=== PATIENT | female | born 1930 | race Caucasian/White ===

== ENCOUNTER 2017-11-24 21:07 | Inpatient (IN) | payer MEDICARE, MEDICAID ==
[~2017-11-24] VITALS: Ht 149.9 cm; Wt 40.4 kg
[2017-11-24 21:54] VITALS: BP 131/67
--- NOTE | 2017-11-24 22:08 | NUR ---
PT TAKEN TO BED 12
--- NOTE | 2017-11-24 22:10 | NUR ---
87/F CAME IN WITH FAMILY WITH C/O N/V/D WITH DECREASED APPETITE, COUGH/WHEEZING AND INTERMITTENT FEVERS X 4 DAYS. FAMILY REPORTS PT HAS HX OF EMPHYSEMA WITH COLLAPSED LUNG. ALL LUNG SOUNDS CLEAR BUT DIMINISHED THROUGHOUT, ABSENT ON LLL, PER DAUGHTER COLLAPSED LEFT LUNG. ABLE TO SPEAK AT FULL LENGTH WITHOUT DIFFICULTY, NO ACUTE RESPIRATORY DISTRESS NOTED RX: ALBUTEROL INH
[2017-11-24] MEDS ORDERED: NACL 0.9% 1,000 ML IV ONE (22:30)
[2017-11-24] MEDS ORDERED: ALBUTEROL SULFATE/IPRATROPIU 3 ML SOL IH ONE ×2 (22:30→23:55)
[2017-11-24] MEDS ORDERED: DEXAMETHASONE 10 MG/ML VIAL IVP ONE (22:30)
[2017-11-24 23:17] LABS: BASOPHILS # (AUTO) 0.1 K/uL (0.00-0.22); BASOPHILS % (AUTO) 1.6 % (0.0-2.0); EOSINOPHILS % (AUTO) 0.2 % (0.0-4.0); HEMATOCRIT 36.9 % (36-48); HEMOGLOBIN 12.5 g/dL (12.0-16.0); LYMPHOCYTES # (AUTO) 0.8 K/uL (2.5-16.5); LYMPHOCYTES % (AUTO) 15.5 % (20.5-51.1); MEAN CORPUSCULAR HEMOGLOBIN 31 pg (27-31); MEAN CORPUSCULAR HGB CONC 34 g/dL (33-37); MEAN CORPUSCULAR VOLUME 91 fL (80-94); MONOCYTES # (AUTO) 0.7 K/uL (0.8-1.0); MONOCYTES % (AUTO) 12.2 % (1.7-9.3); NEUTROPHILS # (AUTO) 3.8 K/uL (1.8-7.7); NEUTROPHILS % (AUTO) 70.5 % (42.2-75.2); PLATELET COUNT (AUTO) 236 K/uL (140-450); RED BLOOD CELL COUNT(AUTO) 4.06 MIL/uL (4.20-5.40); RED CELL DISTRIBUTION WIDTH 11.1 % (11.6-13.7); WHITE BLOOD COUNT (AUTO) 5.4 K/uL (4.8-10.8)
[2017-11-24 23:26] LABS: ANION GAP 9.5 (8-16); CARBON DIOXIDE 28.9 mmol/L (21-32); CHLORIDE 100 mmol/L (98-107); CREATININE 0.7 mg/dL (0.6-1.3); GLUCOSE 128 mg/dL (74-106); POTASSIUM 3.4 mmol/L (3.5-5.1); SODIUM SERUM 135 mmol/L (136-145); UREA NITROGEN, BLOOD 8 mg/dL (7-18)
[2017-11-24 23:32] LABS: ALBUMIN 3.2 g/dL (3.4-5.0); ASPARTATE AMINOTRANSFERASE 42 U/L (15-37); TOTAL BILIRUBIN 0.4 mg/dL (0.0-1.0)
[2017-11-25] MEDS ORDERED: ALBUTEROL 0.083% 2.5 MG/3 ML NEBU IH PRN (00:05)
[2017-11-25] MEDS ORDERED: ONDANSETRON 4 MG/2 ML VIAL IVP PRN (00:05)
[2017-11-25] MEDS ORDERED: guaiFENesin 20 MG/ML UDC PO PRN (00:15)
--- NOTE | 2017-11-25 00:20 | NUR ---
Patient will be admitted to [facility]. Admited to MS. Will go to room 121A. Belongings list completed. BEDSIDE Report to ELINA KELLER. IV SL AND PATENT
[2017-11-25 01:00] VITALS: BP 110/69
--- NOTE | 2017-11-25 01:00 | NUR ---
ADMITTED PATIENT TO THE TELE UNIT, PATIENT AWAKE ALERT ORIENTED X2, NO S/S OF DISTRESS NOTED, RESPIRATION EVEN AND UNLABORED, IV ON THE LT HAND, PATENT AND INTACT, FLUSHED WITH 10ML NS. ORIENTED PATIENT TO THE BATHROOM, PLAN OF CARE DISCUSSED, PATIENT VERBALIZED UNDERSTANDING, CALL LIGHT WITHIN REACH, SAFETY MEASURE ENSURED, WILL CONTINUE TO MONITOR.
[2017-11-25 01:17] LABS: APPEARANCE,URINE HAZY (CLEAR); BILIRUBIN,URINE NEGATIVE (NEGATIVE); BLOOD, URINE TRACE-L (NEGATIVE); COLOR,URINE YELLOW (YELLOW); LEUKOCYTE ESTERASE ,URINE TRACE (NEGATIVE); NITRITE, URINE NEGATIVE (NEGATIVE); UGLUCOSE NEGATIVE (NEGATIVE)
[2017-11-25 01:34] LABS: RBC,URINE 0-5 (RARE) /HPF (0-5)
--- NOTE | 2017-11-25 02:10 | NUR ---
DAUGHTER AT BEDSIDE
[2017-11-25] MEDS: IPRATROPIUM 0.02% 0.5 MG/2.5 ML NEBU IH SCH ×3 (02:11→20:16)
[2017-11-25] MEDS: ALBUTEROL 0.083% 2.5 MG/3 ML NEBU IH SCH ×3 (02:11→20:16)
--- NOTE | 2017-11-25 03:08 | NUR ---
PATIENT AWAKE ALERT, RESTING IN BED, DAUGHTER AT THE BEDSIDE. NO S/S OF DISTRESS NOTED, RESPIRATION EVEN AND UNLABORED, CALL LIGHT WITHIN REACH, SAFETY MEASURE ENSURED, WILL CONTINUE TO MONITOR.
[2017-11-25 04:00] VITALS: BP 115/55
[2017-11-25] MEDS ORDERED: methylPREDNISolone SS 40 MG in WATER STERILE 1 ML IV SCH (05:00)
--- NOTE | 2017-11-25 05:04 | NUR ---
CLARIFIED WITH PHARMACIST NAKUL, SOLU-MEDROL IS GIVEN VIA IVP, DUE MEDICATION GIVEN, PATIENT TOLERATED WELL. NO S/S OF DISTRESS NOTED, RESPIRATION EVEN AND UNLABORED, CALL LIGHT WITHIN REACH, SAFETY MEASURE ENSURED, WILL CONTINUE TO MONITOR.
[2017-11-25 08:00] VITALS: BP 114/58
--- NOTE | 2017-11-25 08:00 | NUR ---
RECEIVED REPORT FROM KINGSTON KELLER FOR CONTINUITY OF CARE. PATIENT AWAKE ,A/OX3 FORGETFUL , DAUGHTER AT THE BED SIDE HELPING WITH THE NEEDS. NO S/S OF RESP DISTRESS NOTED .DENIES ANY PAIN. IV SITE RT HAND G 22 INTACT AND PATENT. GENERALIZE WEAKNESS NOTED SAFETY ENFORCED. PLAN OF CARE DISCUSSED WITH THE PATIENT VITALS STABLE WILL CONTINUE TO MONITOR.
--- NOTE | 2017-11-25 09:00 | NUR ---
DUE MEDS GIVEN TOLERATED WELL. DAUGHTER ASSIST PATIENT WITH MORNING CARE ,ATE BREAKFAST GOOD APPETITE.
[2017-11-25] MEDS: ENOXAPARIN 30 MG/0.3 ML SYR SUBQ SCH (09:16)
--- NOTE | 2017-11-25 09:41 | NUR ---
PATIENT HAS BEEN SCREENED AND CATEGORIZED HIGH NUTRITION RISK. PATIENT WILL BE SEEN WITHIN 1-2 DAYS OF ADMISSION. 11/25/17-11/26/[address]
[2017-11-25 12:00] VITALS: BP 138/72
[2017-11-25] MEDS ORDERED: methylPREDNISolone SS 40 MG/ML VIAL IVP SCH (13:30)
--- NOTE | 2017-11-25 15:32 | NUR ---
11/25/17 RD INITIAL ASSESSMENT COMPLETED PLEASE REFER TO NUTRITION ASSESSMENT UNDER CARE ACTIVITY FOR ESTIMATED NUTRITIONAL NEEDS. RD RECOMMENDATIONS: 1. RECOMMEND DOWNGRADING PTS DIET TO MECHANICAL SOFT DIET D/T PT WITH POOR DENTITION. -NOTE PT CONSUMED ~75% OF BREAKFAST THIS MORNING PER PTS PO INTAKE SHEET. 2. IF PT HAS POOR PO INTAKE, CONSIDER ADDING BOOST PLUS WITH MEALS FOR ADDITIONAL KCAL AND PROTEIN (EACH BOOST PLUS PROVIDES 360 KCAL AND 14 GM OF PROTEIN). 3. RD WILL F/U 3-5 DAYS; MODERATE RISK. RYDER URBAN, RD
[2017-11-25 16:00] VITALS: BP 119/58
[2017-11-25] MEDS ORDERED: AZITHROMYCIN 250 MG in DEXTROSE 5% 250 ML IV SCH (16:00)
--- NOTE | 2017-11-25 19:15 | NUR ---
RECEIVED HANDOFF REPORT FROM CHARGE NURSE NEHA. PATIENT A&OX2. PATIENT IS FORGETFUL REORIENTATION AND REINFORCEMENT NEEDED. PATIENT IV PATENT AND INTACT. O2 NASAL CANNULA AT BEDSIDE. PATIENT HAS SLIGHT INTERMITTENT COUGH. PATIENT DENIES PAIN. PATIENT STATES WANTING TO GO HOME. NO SIGNS OR SYMPTOMS OF ACUTE DISTRESS NOTED. VITAL SIGNS STABLE. SAFETY MEASURES ENSURED. BED ALARM ON. YELLOW GOWN INTACT. TELE BOX REMOVED. YELLOW NON SLIP SOCKS IN PLACE. FALL PROTOCOL IN PLACE. PATIENT IS ON BEDREST. WILL PROVIDE FREQUENT TOILETING. PATIENT NEXT TO NURSES STATION FOR CLOSER MONITORING. FAMILY AT BEDSIDE. WILL CONTINUE TO MONITOR.
[2017-11-25] MEDS: methylPREDNISolone SS 40 MG/ML VIAL IVP SCH (20:15)
--- NOTE | 2017-11-25 20:16 | NUR ---
SON IN ROOM
--- NOTE | 2017-11-25 20:20 | NUR ---
PM MEDS GIVEN WITH EDUCATION. REINFORCEMENT NECESSARY. PATIENT VERBALIZED UNDERSTANDING. RT IN TO SEE PATIENT. PATIENT LINENS HAVE BEEN CHANGED. TOILETING OFFERED. NO SIGNS OR SYMPTOMS OF ACUTE DISTRESS NOTED. CALL LIGHT WITHIN REACH. SAFETY MEASURES ENSURED. WILL CONTINUE TO MONITOR.
--- NOTE | 2017-11-25 20:45 | NUR ---
PATIENTS SON SHOWED CONCERN FOR NASAL CANNULA BEING OUT OF PLACE. NASAL CANNULA RE-PLACED PROPERLY ON 2L. PATIENT O2 IS 95% ON NASAL CANNULA. 94% ON ROOM AIR. PATIENT NOT IN DISTRESS. EDUCATION PROVIDED REGARDING COPD AND OXYGEN LEVELS. PATIENT AND FAMILY VERBALIZED UNDERSTANDING. REINFORCEMENT NEEDED FOR PATIENT. SAFETY MEASURES ENSURED. CALL LIGHT WITHIN REACH. WILL CONTINUE TO MONITOR.
--- NOTE | 2017-11-25 21:30 | NUR ---
PATIENTS SON REQUESTED COFFEE FOR PATIENT. DECAF OFFERED SO PATIENT CAN GET REST FOR THE NIGHT. SON VERBALIZED UNDERSTANDING. PATIENT NOT IN DISTRESS. SAFETY MEASURES ENSURED. CALL LIGHT WITHIN REACH. WILL CONTINUE TO MONITOR.
--- NOTE | 2017-11-25 22:52 | NUR ---
GRAIN ROASTER PROVIDED LINEN CHANGES AND TOILETING TO PATIENT. PATIENT TOLERATED WELL. PATIENT NOT IN DISTRESS. SAFETY MEASURES ENSURED. CALL LIGHT WITHIN REACH. WILL CONTINUE TO MONITOR.
--- NOTE | 2017-11-25 23:30 | NUR ---
SENIOR SUSTAINABILITY ADVISOR IN TO PROVIDE TOILETING TO PATIENT. PATIENT DENIES USAGE. LINENS DRY. PATIENT NOT IN DISTRESS. WILL CONTINUE TO MONITOR.
[2017-11-26] VITALS: BP 136/57
--- NOTE | 2017-11-26 00:30 | NUR ---
PATIENT RESTING IN BED. PATIENT DENIES PAIN. NO SIGNS OR SYMPTOMS OF ACUTE DISTRESS NOTED. NASAL CANNULA OFF, PUT BACK IN PLACE. O2 IS AT 2L. SAFETY MEASURES ENSURED. FAMILY AT BEDSIDE. WILL CONTINUE TO MONITOR.
--- NOTE | 2017-11-26 01:51 | NUR ---
PATIENT RESTING IN BED. PATIENT DENIES PAIN. NASAL CANNULA ON 2L O2 INTACT. SAFETY MEASURES ENSURED. CALL LIGHT WITHIN REACH. FAMILY AT BEDSIDE. WILL CONTINUE TO MONITOR.
--- NOTE | 2017-11-26 02:40 | NUR ---
RT IN TO SEE PATIENT.
[2017-11-26] MEDS: IPRATROPIUM 0.02% 0.5 MG/2.5 ML NEBU IH SCH ×3 (02:43→13:18)
[2017-11-26] MEDS: ALBUTEROL 0.083% 2.5 MG/3 ML NEBU IH SCH ×3 (02:44→13:18)
[2017-11-26] MEDS: methylPREDNISolone SS 40 MG/ML VIAL IVP SCH ×2 (05:37→12:14)
--- NOTE | 2017-11-26 07:18 | NUR ---
ENDORSED PLAN OF CARE TO AM RN. PATIENT IN STABLE CONDITION.
[2017-11-26 07:20] LABS: HEMATOCRIT 35.1 % (36-48); MEAN CORPUSCULAR HEMOGLOBIN 31 pg (27-31); MEAN CORPUSCULAR HGB CONC 34 g/dL (33-37); MEAN CORPUSCULAR VOLUME 90 fL (80-94); PLATELET COUNT (AUTO) 258 K/uL (140-450); RED BLOOD CELL COUNT(AUTO) 3.89 MIL/uL (4.20-5.40); RED CELL DISTRIBUTION WIDTH 11.4 % (11.6-13.7); WHITE BLOOD COUNT (AUTO) 10.1 K/uL (4.8-10.8)
--- NOTE | 2017-11-26 07:20 | NUR ---
REPORT RECEIVED FROM MUD MIXER, PT AWAKE RESTING QUIETLY IN NAD, RESP EVEN UNLABORED ON ROOM AIR, SKIN WARM DRY COLOR WNL, PT DENIES PAIN OR DISCOMFORT AT THIS TIME, SON DOMINIQUE AT BEDSIDE, PLAN OF CARE REVIEWED, NO IMMEDIATE NEEDS IDENTIFIED, CALL CERVANTES WITHIN REACH, SIDE RAILS UP, BED LOCKED IN LOW POSITION, WILL CONTINUE TO MONITOR.
[2017-11-26 08:00] VITALS: BP 133/62
[2017-11-26 08:12] LABS: ALBUMIN 3.1 g/dL (3.4-5.0); ASPARTATE AMINOTRANSFERASE 42 U/L (15-37); CARBON DIOXIDE 29.6 mmol/L (21-32); CHLORIDE 106 mmol/L (98-107); CREATININE 0.6 mg/dL (0.6-1.3); GLUCOSE 131 mg/dL (74-106); POTASSIUM 3.6 mmol/L (3.5-5.1); SODIUM SERUM 142 mmol/L (136-145); TOTAL BILIRUBIN 0.3 mg/dL (0.0-1.0); UREA NITROGEN, BLOOD 10 mg/dL (7-18)
[2017-11-26 08:21] LABS: BASOPHILS % (MANUAL) 0 % (0-2); EOSINOPHILS % (MANUAL) 0 % (0-4); LYMPHOCYTES % (MANUAL) 5 % (20-46); MONOCYTES % (MANUAL) 2 % (5-12)
[2017-11-26] MEDS: ENOXAPARIN 30 MG/0.3 ML SYR SUBQ SCH (08:28)
--- NOTE | 2017-11-26 08:43 | NUR ---
AM LOVENOX GIVEN SQ, PT JUAN WELL, DIAPER CHANGED, PERICARE DONE, PT ABLE TO MOVE AROUND IN BED IN NAD, JUAN ROOM AIR WELL , O2 SAT 94% ON ROOM AIR, JUAN BREAKFAST WELL WITHOUT VOMITING WILL CONTINUE TO MONITOR.
--- NOTE | 2017-11-26 12:14 | NUR ---
SOLUMEDROL GIVEN IV, IV SITE CLEAR, WILL CONTIUE TO MONITOR.
--- NOTE | 2017-11-26 14:02 | NUR ---
PT SITTING UP SIDE OF BED, TALKING WITHOUT PROBLEM, HAPPY SMILING LISTENING TO MUSIC, SON AT BEDSIDE, RESP EVEN UNLABORED ON ROOM AIR, WILL CONTINUE TO MONITOR, AWAITING DR NICOLE TO EVALUATE.
[2017-11-26 16:00] VITALS: BP 139/72
--- NOTE | 2017-11-26 16:00 | NUR ---
VITALS STABLE, DR NICOLE AT BEDSIDE, PT TO GET DC HOME, PT SITTING UP IN NAD, WILL DISCHARGE SOON.
[2017-11-26] MEDS ORDERED: PRED10TA5 PO (16:22)
[2017-11-26] MEDS ORDERED: AZIT250T3 PO (16:23)
--- NOTE | 2017-11-26 16:35 | NUR ---
DC INSTRUCTION AND RX GIVEN AND EXPLAINED TO PT AND HER SON, THEY VERBALIZED FULL UNDERSTANDING, PT UP OUT OF BED WITH ASSIST TO WHEELCHAIR, IV DC'D, CATH TIP INTACT, BLEEDING CONTROLLED, DC HOME NOW WITH SON. ESCORTED OUT IN WHEELCHAIR.
--- NOTE | 2017-11-27 15:22 | NUR ---
CM NOTE RETRO REVIEW FAXED TO [facility] / FAX# [phone]
== END 2017-11-26 16:35 | disposition home or self-care (01) | DRG 189 ==
LOC: MED 21:07 → MTU 11-25 00:08
PROVIDERS: ADMIT Hospitalist; ATTEND Hospitalist
DX: J96.20 Acute and chronic respiratory failure, unspecified whether with hypoxia or hypercapnia (principal); J44.1 Chronic obstructive pulmonary disease with (acute) exacerbation; F03.90 Unspecified dementia, unspecified severity, without behavioral disturbance, psychotic disturbance, mood disturbance, and anxiety; N18.9 Chronic kidney disease, unspecified; Z98.62 Peripheral vascular angioplasty status; Z87.891 Personal history of nicotine dependence
CPT/HCPCS: 36415; 71045; 80053; 81001; 84484; 85025; 87040; 87081; 87086; 87804; 94640; 96374; 99285; J0456; J1100; J1650; J2920; J7060; J7613; J7620; J7644

== ENCOUNTER 2018-07-08 13:37 | Emergency (ER) | payer MEDICARE, MEDICAID ==
[~2018-07-08] VITALS: Ht 142.2 cm; Wt 40.8 kg
[~2018-07-08 13:37] MED LIST: AZIT250T3 PO; PRED10TA5 PO
[2018-07-08 13:56] VITALS: BP 125/95
--- NOTE | 2018-07-08 14:02 | NUR ---
PATIENT PRESENTS TO ED WITH C/O LEFT SIDED NECK PAIN AND UPPER BACK PAIN X THIS AM . PT STATES . DENIES N/V/D; SKIN IS PINK/WARM/DRY; AAOX4 WITH EVEN AND STEADY GAIT; LUNGS CLEAR BL; HR EVEN AND REGULAR; PT DENIES ANY FEVER, CP, SOB, OR COUGH AT THIS TIME; PATIENT STATES PAIN OF 6/10 AT THIS TIME; VSS; PATIENT POSITIONED FOR COMFORT; HOB ELEVATED; BEDRAILS UP X2; BED DOWN. ER MD MADE AWARE OF PT STATUS.
[2018-07-08] MEDS ORDERED: DEXAMETHASONE 10 MG/ML VIAL IM ONE (15:10)
[2018-07-08] MEDS ORDERED: KETOROLAC 30 MG/ML VIAL IM ONE (15:10)
--- NOTE | 2018-07-08 15:17 | NUR ---
PT TAKEN TO CT IN WHEELCHAIR
--- NOTE | 2018-07-08 15:32 | NUR ---
PT'S SON AND DAUGHTER AT BEDSIDE
[2018-07-08 16:50] VITALS: BP 136/69
--- NOTE | 2018-07-08 16:50 | NUR ---
Patient discharged with v/s stable. Written and verbal after care instructions given and explained. Patient alert, oriented and verbalized understanding of instructions. Ambulatory with to home. All questions addressed prior to discharge. ID band removed. Patient advised to follow up with PMD. Rx of TRAMADOL,PREDNISONE given. Patient educated on indication of medication including possible reaction and side effects. Opportunity to ask questions provided and answered.
--- NOTE | 2018-07-08 16:50 | NUR ---
PATIENT AMBULATED WITH CANE, WITH DAUGHTER.
== END 2018-07-08 16:50 | disposition home or self-care (01) ==
LOC: MED 13:37
DX: M50.321 Other cervical disc degeneration at C4-C5 level (principal); M50.322 Other cervical disc degeneration at C5-C6 level; J45.909 Unspecified asthma, uncomplicated; Z79.2 Long term (current) use of antibiotics
CPT/HCPCS: 72125; 96372; 99284; J1100; J1885